=== PATIENT | female | born 1985 | race Caucasian/White ===

== ENCOUNTER 2021-05-19 07:51 | Emergency (ER) | payer BC ==
[2021-05-19 07:59] VITALS: RESP 18; TEMP 98
--- NOTE | 2021-05-19 08:19 | ED ---
General Adult HPI - General Chief complaint: Abdominal Pain Stated complaint: unable to have a BM Time Seen by Provider: 05/19/21 08:00 Source: patient, RN notes reviewed, old records reviewed Mode of arrival: ambulatory Limitations: no limitations - History of Present Illness Initial comments: This is a 35-year-old female presents emergency Department complaining of constipation for 3 weeks. Patient states she's only been able to go a little bit over the last 3 weeks and she's taken MiraLAX and mag citrate and an enema and has not had any success. Patient states that she also has a history of endometriosis and saw her ACCOUNTS RECEIVABLE BOOKKEEPER in he wants to get an ultrasound on her and the next week. Patient states she does have diffuse abdominal pain but occasionally does have some sharp pains in the lower abdomen. Patient denies any dysuria hematuria urinary frequency. Patient denies any nausea vomiting diarrhea. Patient denies any vaginal bleeding or discharge. - Related Data Previous Rx's Medication Instructions Recorded bisacodyL [Dulcolax] 10 mg PO DAILY #10 tab 05/19/21 Allergies Allergy/AdvReac Type Severity Reaction Status Date / Time No Known Allergies Allergy Verified 05/19/21 07:55 Review of Systems ROS Statement: Those systems with pertinent positive or pertinent negative responses have been documented in the HPI. ROS Other: All systems not noted in ROS Statement are negative. Past Medical History Past Medical History: No Reported History History of Any Multi-Drug Resistant Organisms: None Reported Past Surgical History: Breast Surgery, Tubal Ligation, Uterine Ablation Additional Past Surgical History / Comment(s): R lumpecoty, L ovarian cyst removal Past Psychological History: Anxiety Smoking Status: Never smoker Past Alcohol Use History: Occasional Past Drug Use History: Marijuana General Exam - General Exam Comments Initial Comments: GENERAL: Patient is well-developed and well-nourished. Patient is nontoxic and well- hydrated and is in mild distress. ENT: Neck is soft and supple. No significant lymphadenopathy is noted. Oropharynx is clear. Moist mucous membranes. Neck has full range of motion without eliciting any pain. EYES: The sclera were anicteric and conjunctiva were pink and moist. Extraocular movements were intact and pupils were equal round and reactive to light. Eyelids were unremarkable. ABDOMEN: No point tenderness but diffuse mild tenderness SKIN: Skin is clear with no lesions or rashes and otherwise unremarkable. NEUROLOGIC: Patient is alert and oriented x3. Cranial nerves II through XII are grossly intact. Motor and sensory are also intact. Normal speech, volume and content. Symmetrical smile. MUSCULOSKELETAL: Normal extremities with adequate strength and full range of motion. LYMPHATICS: No significant lymphadenopathy is noted PSYCHIATRIC: Normal psychiatric evaluation. Limitations: no limitations Course Vital Signs 05/19/21 07:55 Temperature 98 F Pulse Rate 91 Respiratory 18 Rate Blood Pressure 125/71 O2 Sat by Pulse 98 Oximetry Medical Decision Making - Medical Decision Making Patient received an enema in the emergency department with minimal results. Patient's constipation did not cause any dilatation of the colon she will go home and try milk of magnesia and Dulcolax. Patient will then follow-up with her primary medical care doctor. Disposition Clinical Impression: Constipation Disposition: HOME SELF-CARE Condition: Good Instructions (If sedation given, give patient instructions): Constipation (ED), High Fiber Diet (ED) Prescriptions: bisacodyL [Dulcolax] 10 mg PO DAILY #10 tab Is patient prescribed a controlled substance at d/c from ED?: No Referrals: Sim Kaiser MD [Primary Care Provider] - 1-2 days Time of Disposition: 10:56
--- NOTE | 2021-05-19 08:26 | XR ---
EXAMINATION TYPE: XR KUB DATE OF EXAM: 05/19/2021 COMPARISON: NONE HISTORY: Pain TECHNIQUE: One view abdominal series FINDINGS: The osseous structures are intact. The bowel gas pattern is nonspecific. No evidence of obstruction. Lung bases are clear. Retained fecal debris throughout the colon. Tiny calcification along the late ral margin of the right acetabulum could be associated with acetabular labral tear correlate clinical ly. IMPRESSION: 1. Nonspecific abdomen. Correlate for constipation.
[2021-05-19 11:20] VITALS: BP 119/68; PULSE 69
== END 2021-05-19 11:20 | disposition home or self-care (01) ==
LOC: EC 07:51
DX: K59.00 Constipation, unspecified (principal); R10.84 Generalized abdominal pain
CPT/HCPCS: 74018; 99284

== ENCOUNTER → 2022-05-16 | Outpatient (CLI) | payer BC ==
[2022-05-16 22:50] LABS: Basophils # (A) 0.03 X 10*3/uL (0.00-0.10); Basophils % (A) 0.5 %; Eosinophils # (A) 0.07 X 10*3/uL (0.04-0.35); Eosinophils % (A) 1.2 %; HCT 38.7 % (37.2-46.3); HGB 13.2 g/dL (12.0-15.0); Immature Grans, Automated 0.2 %; Lymphocytes # (A) 2.78 X 10*3/uL (0.90-5.00); MCH 31.9 pg (27.0-32.0); MCHC 34.1 g/dL (32.0-37.0); MCV 93.5 fL (80.0-97.0); Mean Platelet Volume 11.2 fL (9.5-12.2); Monocytes % (A) 8.4 %; NRBC Per 100 WBC 0 /100 WBCS (0.0-0.0); Neutrophils # (A) 2.53 X 10*3/uL (1.80-7.70); Neutrophils % (A) 42.7 %; Platelet Count 305 X 10*3/uL (140-440); RBC 4.14 X 10*6/uL (4.10-5.20); RDW 12.9 % (11.5-14.5); WBC 5.92 X 10*3/uL (4.50-10.00)
== END | disposition home or self-care (01) ==
LOC: LABPAT 15:16
PROVIDERS: ATTEND Obstetrics & Gynecology
DX: Z01.812 Encounter for preprocedural laboratory examination (principal); N85.7 Hematometra; N93.8 Other specified abnormal uterine and vaginal bleeding
CPT/HCPCS: 36415; 85025

== ENCOUNTER 2022-05-21 06:04 | Day surgery (SDC) | payer BC ==
[2022-05-16 13:48] VITALS: BMI 25.1
[~2022-05-21 06:04] MED LIST: Pre Op ABX Message 1 EACH MISC MISCELLANE ONE
[2022-05-21] MEDS ORDERED: LACTATED RINGERS 1,000 ML IV SCH (06:47)
[2022-05-21] MEDS ORDERED: DEXAMETHASONE SOD PHOSPHATE 4 MG/ML 1 ML VIAL IV ONE (06:47)
[2022-05-21] MEDS ORDERED: SCOPOLAMINE 1 MG/72 HR PATCH TRANSDERM ONE (06:47)
[2022-05-21] MEDS ORDERED: ONDANSETRON 4 MG/2 ML VIAL IVP ONE (06:47)
[2022-05-21] MEDS ORDERED: MIDAZOLAM 2 MG/2 ML VIAL IV PRN (06:47)
[2022-05-21] MEDS ORDERED: HYDROmorphone 0.5 MG/0.5 ML SYRINGE IVP PRN (07:00)
[2022-05-21] MEDS: LIDOCAINE 1%-EPI 1:100,000 20 ML VIAL SQ ONE ×2 (07:08→07:23)
[2022-05-21] MEDS ORDERED: LIDOCAINE 2% INJ 20 MG/ML (2 ML VIAL) ONE (07:19)
[2022-05-21] MEDS ORDERED: PROPOFOL 10 MG/ML 20 ML VIAL IV ONE (07:19)
[2022-05-21] MEDS ORDERED: fentaNYL (PF) 50 MCG/ML 2 ML AMP ONE (07:19)
[2022-05-21] MEDS ORDERED: KETOROLAC 15 MG/ML 1 ML VIAL ONE (07:19)
[2022-05-21] MEDS ORDERED: fentaNYL (PF) 50 MCG/1 ML VIAL IVP ONE (07:20)
[2022-05-21 07:25] VITALS: RESP 16
[2022-05-21] MEDS ORDERED: LIDOCAINE 1%-EPI 1:100,000 20 ML VIAL SUBMUCOSAL ONE (07:50)
--- NOTE | 2022-05-21 08:04 | P.OP ---
Date of Procedure: 05/21/22 Preoperative Diagnosis: Dysmenorrhea, dysfunctional uterine bleeding, probable hematoma endometrial Postoperative Diagnosis: Same Procedure(s) Performed: Diagnostic hysteroscopy and dilation and curettage Anesthesia: MAC Surgeon: Estella Garcia Estimated Blood Loss (ml): 5 IV fluids (ml): 600 Urine output (ml): 50 Pathology: other (Endometrial curettings) Condition: stable Disposition: PACU Indications for Procedure: Dysfunctional uterine bleeding, dysmenorrhea and findings of possible hematoma endometrioma on pelvic ultrasound. History of bilateral tubal ligation and endometrial ablation in the past. Operative Findings: Multiparous cervix with second to third degree cervical uterine prolapse. Cervix is initially stenotic however does dilate to a depth of approximately 7 cm. 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 No distinct hematometra pocket located. Bilateral tubal ostia not visualized. Description of Procedure: After the patient was met in the preoperative holding area and all questions were answered, she was taken to the operating room where anesthetic was administered without incident. Appropriate timeout procedure was undertaken. The patient was positioned, prepped and draped in the dorsal lithotomy position. Bladder drained for approximately 50 mL of clear urine. Exam under anesthetic revealed a globular uterus, approximately 6 weeks' size and freely mobile. Weighted speculum was placed in the vagina and the cervix was grasped anteriorly with a single-tooth tenaculum. The cervix was multiparous and did descend to the level of the introitus. Paracervical block was placed. Very gentle probing of the cervical external os reveals initial mild stenosis. This is gently dilated to a depth of approximately 2 cm. At this point the diagnostic hysteroscope is introduced and with positive fluid pressure under direct visualization the hysteroscope is advanced. The scope was advanced very gently to a depth of 6-7 cm. There is no hematometra pocket encountered and no normal endometrial cavity appreciated. 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 The hysteroscope was removed and this passage was gently dilated to allow for passage of the smallest sharp banjo curet. Prior to placement of this curette the hysteroscope was reintroduced to assure the same passageway had been followed and reassess anatomy. Again no normal endometrial cavity was visualized. This cavity was circumferentially gently curettaged with minimal tissue obtained. Instruments were then removed from the uterus and the cervix was observed. There is mild bleeding from the paracervical block sites which did resolve. No active bleeding from the cervix. Instruments were then removed from the vagina. All counts reported to me as correct. The patient was awoken and transported to recovery in good condition.
[2022-05-21 08:21] VITALS: TEMP 97.2
[2022-05-21 09:07] VITALS: PULSE 72
[2022-05-21 09:10] VITALS: BP 112/64
== END 2022-05-21 09:19 | disposition home or self-care (01) ==
LOC: OR 06:04
PROVIDERS: ATTEND Obstetrics & Gynecology
DX: N94.6 Dysmenorrhea, unspecified (principal); N93.8 Other specified abnormal uterine and vaginal bleeding; F41.8 Other specified anxiety disorders; F90.9 Attention-deficit hyperactivity disorder, unspecified type; F15.90 Other stimulant use, unspecified, uncomplicated; Z79.899 Other long term (current) drug therapy; Z98.890 Other specified postprocedural states; Z98.82 Breast implant status; Z98.51 Tubal ligation status
CPT/HCPCS: 58558; 81025; 88305; J2250; J1100; J2405; J3010 ×2; J1885; J2704; J1170; J2001

== ENCOUNTER 2023-02-23 12:35 | Emergency (ER) | payer BC ==
[2023-02-23] MEDS ORDERED: SODIUM CHLORIDE 0.9% 1,000 ML IV STA (13:49)
[2023-02-23] MEDS ORDERED: ONDANSETRON 4 MG/2 ML VIAL IVP STA (13:49)
[2023-02-23] MEDS ORDERED: SODIUM CHLORIDE 0.9% 500 ML 500 ML IV STA (13:49)
[2023-02-23] MEDS ORDERED: HYDROmorphone 0.5 MG/0.5 ML SYRINGE IVP STA ×2 (13:49→16:17)
[2023-02-23 14:10] LABS: Basophils % (A) 0 %; Eosinophils # (A) 0.1 k/uL (0-0.7); Eosinophils % (A) 2 %; HCT 40.9 % (34.0-46.0); HGB 14.5 gm/dL (11.4-16.0); Lymphocytes # (A) 2.1 k/uL (1.0-4.8); Lymphocytes % (A) 42 %; MCH 32.8 pg (25.0-35.0); MCHC 35.5 g/dL (31.0-37.0); MCV 92.4 fL (80.0-100.0); Mean Platelet Volume 8.1; Monocytes # (A) 0.4 k/uL (0-1.0); Monocytes % (A) 8 %; Neutrophils # (A) 2.3 k/uL (1.3-7.7); Neutrophils % (A) 46 %; Platelet Count 291 k/uL (150-450); RBC 4.42 m/uL (3.80-5.40); RDW 12.6 % (11.5-15.5); WBC 5.1 k/uL (3.8-10.6)
[2023-02-23 14:17] LABS: ALT 16 U/L (4-34); AST 21 U/L (14-36); African American GFR (CKD) >90 (>60 ml/min/1.73 sqM); Albumin 4.5 g/dL (3.5-5.0); Alkaline Phosphatase 57 U/L (38-126); Anion Gap 10 mmol/L; Appearance,Urine Clear (Clear); Bilirubin,Urine Negative (Negative); Blood Urea Nitrogen 6 mg/dL (7-17); Blood,Urine Negative (Negative); Calcium 9.2 mg/dL (8.4-10.2); Carbon Dioxide 24 mmol/L (22-30); Chloride 104 mmol/L (98-107); Color,Urine Light Yellow; Glucose 112 mg/dL (74-99); Glucose,Urine (UA) Negative (Negative); Ketones,Urine Negative (Negative); Leukocyte Esterase,Urine Negative (Negative); Lipase 141 U/L (23-300); Nitrite,Urine Negative (Negative); Non-African American GFR(CKD) >90 (>60 ml/min/1.73 sqM); Protein,Urine Negative (Negative); Sodium 138 mmol/L (137-145); Specific Gravity,Urine 1.009 (1.001-1.035); Total Bilirubin 0.5 mg/dL (0.2-1.3); Total Protein 7.6 g/dL (6.3-8.2); Urobilinogen,Urine <2.0 mg/dL (<2.0)
--- NOTE | 2023-02-23 15:16 | ED ---
Abdominal Pain HPI - General Chief Complaint: Abdominal Pain Stated Complaint: Lower abd pain Time Seen by Provider: 02/23/23 13:34 Source: patient, RN notes reviewed Mode of arrival: ambulatory Limitations: no limitations - History of Present Illness Initial Comments: This a 37-year-old female presents emergency Department chief complaint of lower abdominal pain. Patient states this started earlier today. States it's very intense sharp pain in her lower abdomen states that she's been having issues with bleeding, cyst possible endometriosis. Patient had D&C, abrasion, multiple medications to control her symptoms. Patient states she is scheduled for hysterectomy by Dr. Baez - Related Data Home Medications Medication Instructions Recorded Confirmed Citalopram Hydrobromide [CeleXA] 40 mg PO HS 05/19/21 09/18/22 Spironolactone 100 mg PO HS 05/19/21 09/18/22 Benzonatate [Tessalon Perles] 100 mg PO QID PRN 09/18/22 09/18/22 Dextroamphetamine/Amphetamine 7.5 mg PO DAILY 09/18/22 09/18/22 [Adderall] Diclofenac Sodium [Voltaren] 75 mg PO BID-W/MEALS 09/18/22 09/18/22 Doxycycline Hyclate 100 mg PO BID 09/18/22 09/18/22 Montelukast Sodium [Singulair] 10 mg PO HS 09/18/22 09/18/22 Previous Rx's Medication Instructions Recorded Ibuprofen [Motrin] 800 mg PO Q8HR PRN #30 tab 09/18/22 Lidocaine 5% Patch [Lidoderm 5% 1 patch TOPICAL DAILY PRN #7 patch 09/18/22 Patch] HYDROcodone/APAP 7.5-325MG [[place] 1 tab PO Q6HR PRN 3 Days #12 tab 02/23/23 7.5-325] Allergies Allergy/AdvReac Type Severity Reaction Status Date / Time No Known Allergies Allergy Verified 02/23/23 12:43 Review of Systems ROS Statement: Those systems with pertinent positive or pertinent negative responses have been documented in the HPI. ROS Other: All systems not noted in ROS Statement are negative. Past Medical History Past Medical History: No Reported History Additional Past Medical History / Comment(s): Hematometra,abd cramping History of Any Multi-Drug Resistant Organisms: None Reported Past Surgical History: Breast Surgery, Tubal Ligation, Uterine Ablation Additional Past Surgical History / Comment(s): lump removed rt breast, L ovarian cyst removal Past Anesthesia/Blood Transfusion Reactions: No Reported Reaction Past Psychological History: Anxiety Smoking Status: Never smoker Past Alcohol Use History: Occasional Past Drug Use History: Marijuana - Past Family History Mother Family Medical History: No Reported History General Exam Limitations: no limitations General appearance: alert, in no apparent distress Head exam: Present: atraumatic, normocephalic, normal inspection Eye exam: Present: normal appearance, PERRL, EOMI. Absent: scleral icterus, conjunctival injection, periorbital swelling ENT exam: Present: normal exam, normal oropharynx, mucous membranes moist Neck exam: Present: normal inspection, full ROM. Absent: tenderness, meningismus, lymphadenopathy Respiratory exam: Present: normal lung sounds bilaterally. Absent: respiratory distress, wheezes, rales, rhonchi, stridor Cardiovascular Exam: Present: regular rate, normal rhythm, normal heart sounds. Absent: systolic murmur, diastolic murmur, rubs, gallop, clicks GI/Abdominal exam: Present: soft, tenderness, normal bowel sounds. Absent: distended, guarding, rebound, rigid Back exam: Absent: CVA tenderness (R), CVA tenderness (L) Course Vital Signs 02/23/23 12:41 Temperature 97.9 F Pulse Rate 78 Respiratory 18 Rate Blood Pressure 124/79 O2 Sat by Pulse 99 Oximetry Medical Decision Making - Medical Decision Making Was pt. sent in by a medical professional or institution (, [facility], OPERATIONS SCHEDULER, urgent care, hospital, or fpc...) When possible be specific @ -No Did you speak to anyone other than the patient for history (EMS, parent, family, police, friend...)? What history was obtained from this source @ -No Did you review nursing and triage notes (agree or disagree)? Why? @ -I reviewed and agree with nursing and triage notes Were old charts reviewed (outside hosp., previous admission, EMS record, old EKG, old radiological studies, urgent care reports/EKG's, fpc records)? Report findings @ -No old charts were reviewed Differential Diagnosis (chest pain, altered mental status, abdominal pain women, abdominal pain men, vaginal bleeding, weakness, fever, dyspnea, syncope, headache, dizziness, GI bleed, back pain, seizure, CVA, palpatations, mental health, musculoskeletal)? @ -nDifferential Abdominal Pain Women: Appendicitis, Cholecystitis, diverticulosis, ischemic bowel, pancreatitis, hepatitis, UTI, gastroenteritis, AAA, incarcerated hernia, bowel obstruction, constipation, inflammatory bowel, hepatitis, peptic ulcer disease, splenic infarction, perforated viscus, vulvitis, ovarian torsion, PID, kidney stone, placenta abruption, this is not meant to be an all-inclusive listable EKG interpreted by me (3pts min.). @ -None X-rays interpreted by me (1pt min.). @ -None done CT interpreted by me (1pt min.). @ -None done U/S interpreted by me (1pt. min.). @ -Ultrasound shows thickening of endometrium consistent with adenomyosis What testing was considered but not performed or refused? (CT, X-rays, U/S, labs)? Why? @ -None What meds were considered but not given or refused? Why? @ -None Did you discuss the management of the patient with other professionals (professionals i.e. , PA, OPERATIONS SCHEDULER, lab, RT, psych nurse, social service technician, grease refiner operator, teacher, youth officer, lining caser)? Give summary @ -No Was smoking cessation discussed for >3mins.? @ -No Was critical care preformed (if so, how long)? @ -No Were there social determinants of health that impacted care today? How? (Homelessness, low income, unemployed, alcoholism, drug addiction, transportation, low edu. Level, literacy, decrease access to med. care, penitentiary, rehab)? @ -No Was there de-escalation of care discussed even if they declined (Discuss DNR or withdrawal of care, Hospice)? DNR status @ -No What co-morbidities impacted this encounter? (DM, HTN, Smoking, COPD, CAD, Cancer, CVA, ARF, Chemo, Hep., AIDS, mental health diagnosis, sleep apnea, morbid obesity)? @ -None Was patient admitted / discharged? Hospital course, mention meds given and route, prescriptions, significant lab abnormalities, going to OR and other pertinent info. @ -Discharged patient's pain is improved patient will follow-up with her DELIVERY NURSE patient is scheduled for hysterectomy. Left wrist x-rays urinalysis unremarkable. Undiagnosed new problem with uncertain prognosis? @ -No Drug Therapy requiring intensive monitoring for toxicity (Heparin, Nitro, Insulin, Cardizem)? @ -No Were any procedures done? @ -No Diagnosis/symptom? @ -Pelvic pain, adenomyosis Acute, or Chronic, or Acute on Chronic? @ -Acute on chronic Uncomplicated (without systemic symptoms) or Complicated (systemic symptoms)? @ -[Uncomplicated] Side effects of treatment? @ -[No] Exacerbation, Progression, or Severe Exacerbation? @ -[No] Poses a threat to life or bodily function? How? (Chest pain, USA, ND, pneumonia, PE, COPD, DKA, ARF, appy, cholecystitis, CVA, Diverticulitis, Homicidal, Suicidal, threat to staff... and all critical care pts) @ -[No] - Lab Data Result diagrams: 02/23/23 13:54 02/23/23 13:54 Lab Results 02/23/23 02/23/23 02/23/23 Range/Units 13:54 13:54 13:54 WBC 5.1 (3.8-10.6) k/uL RBC 4.42 (3.80-5.40) m/uL Hgb 14.5 (11.4-16.0) gm/dL Hct 40.9 (34.0-46.0) % MCV 92.4 (80.0-100.0) fL MCH 32.8 (25.0-35.0) pg MCHC 35.5 (31.0-37.0) g/dL RDW 12.6 (11.5-15.5) % Plt Count 291 (150-450) k/uL MPV 8.1 Neutrophils % 46 % Lymphocytes % 42 % Monocytes % 8 % Eosinophils % 2 % Basophils % 0 % Neutrophils # 2.3 (1.3-7.7) k/uL Lymphocytes # 2.1 (1.0-4.8) k/uL Monocytes # 0.4 (0-1.0) k/uL Eosinophils # 0.1 (0-0.7) k/uL Basophils # 0.0 (0-0.2) k/uL Sodium 138 (137-145) mmol/L Potassium 4.0 (3.5-5.1) mmol/L Chloride 104 (98-107) mmol/L Carbon Dioxide 24 (22-30) mmol/L Anion Gap 10 mmol/L BUN 6 L (7-17) mg/dL Creatinine 0.74 (0.52-1.04) mg/dL Est GFR (CKD-EPI)AfAm >90 (>60 ml/min/1.73 sqM) Est GFR (CKD-EPI)NonAf >90 (>60 ml/min/1.73 sqM) Glucose 112 H (74-99) mg/dL Plasma Lactic Acid William (0.7-2.0) mmol/L Calcium 9.2 (8.4-10.2) mg/dL Total Bilirubin 0.5 (0.2-1.3) mg/dL AST 21 (14-36) U/L ALT 16 (4-34) U/L Alkaline Phosphatase 57 (38-126) U/L Total Protein 7.6 (6.3-8.2) g/dL Albumin 4.5 (3.5-5.0) g/dL Lipase 141 (23-300) U/L Urine Color Light Yellow Urine Appearance Clear (Clear) Urine pH 6.0 (5.0-8.0) Ur Specific [place] 1.009 (1.001-1.035) Urine Protein Negative (Negative) Urine Glucose (UA) Negative (Negative) Urine Ketones Negative (Negative) Urine Blood Negative (Negative) Urine Nitrite Negative (Negative) Urine Bilirubin Negative (Negative) Urine Urobilinogen <2.0 (<2.0) mg/dL Ur Leukocyte Esterase Negative (Negative) 02/23/23 Range/Units 13:54 WBC (3.8-10.6) k/uL RBC (3.80-5.40) m/uL Hgb (11.4-16.0) gm/dL Hct (34.0-46.0) % MCV (80.0-100.0) fL MCH (25.0-35.0) pg MCHC (31.0-37.0) g/dL RDW (11.5-15.5) % Plt Count (150-450) k/uL MPV Neutrophils % % Lymphocytes % % Monocytes % % Eosinophils % % Basophils % % Neutrophils # (1.3-7.7) k/uL Lymphocytes # (1.0-4.8) k/uL Monocytes # (0-1.0) k/uL Eosinophils # (0-0.7) k/uL Basophils # (0-0.2) k/uL Sodium (137-145) mmol/L Potassium (3.5-5.1) mmol/L Chloride (98-107) mmol/L Carbon Dioxide (22-30) mmol/L Anion Gap mmol/L BUN (7-17) mg/dL Creatinine (0.52-1.04) mg/dL Est GFR (CKD-EPI)AfAm (>60 ml/min/1.73 sqM) Est GFR (CKD-EPI)NonAf (>60 ml/min/1.73 sqM) Glucose (74-99) mg/dL Plasma Lactic Acid William 1.3 (0.7-2.0) mmol/L Calcium (8.4-10.2) mg/dL Total Bilirubin (0.2-1.3) mg/dL AST (14-36) U/L ALT (4-34) U/L Alkaline Phosphatase (38-126) U/L Total Protein (6.3-8.2) g/dL Albumin (3.5-5.0) g/dL Lipase (23-300) U/L Urine Color Urine Appearance (Clear) Urine pH (5.0-8.0) Ur Specific [place] (1.001-1.035) Urine Protein (Negative) Urine Glucose (UA) (Negative) Urine Ketones (Negative) Urine Blood (Negative) Urine Nitrite (Negative) Urine Bilirubin (Negative) Urine Urobilinogen (<2.0) mg/dL Ur Leukocyte Esterase (Negative) Disposition Clinical Impression: Pelvic pain, Adenomyosis Disposition: HOME SELF-CARE Condition: Stable Instructions (If sedation given, give patient instructions): Endometriosis (ED) Additional Instructions: Please return to the Emergency Department if symptoms worsen or any other concerns. Prescriptions: HYDROcodone/APAP 7.5-325MG [[place] 7.5-325] 1 tab PO Q6HR PRN 3 Days #12 tab PRN Reason: Pain Is patient prescribed a controlled substance at d/c from ED?: Yes Referrals: Sim Kaiser MD [Primary Care Provider] - 1-2 days Time of Disposition: 16:18
--- NOTE | 2023-02-23 16:07 | US ---
EXAMINATION TYPE: US transvaginal DATE OF EXAM: 02/23/2023 COMPARISON: NONE CLINICAL INDICATION: Female, 37 years old with history of pain; Pain, intermittent bleeding x 3 weeks . Hx tubal ligation, uterine ablation, left ovarian cyst removal, d and c. Patient states she has a h ysterectomy scheduled for 03/11/23. Hx 2 miscarriages. . TECHNIQUE: Transvaginal (TV). Date of LMP: Unknown per patient. EXAM MEASUREMENTS: Uterus: 10.6 x 6.2 x 4.7 cm Endometrial Stripe: 0.41 cm Right Ovary: Not seen Left Ovary: 3.1 x 2.1 x 1.9 cm 1. Uterus: Slightly enlarged versus measures upper limits. Anteverted heterogeneous appearance of th e myometrium, suggesting underlying adenomyosis. 2. Endometrium: Within normal limits measuring 4 mm.Trace volume of complex fluid is noted within t he upper myometrium measuring up to 7 mm, likely on expelled blood products. Punctate calculus within the endometrium measuring up to 5 mm. 3. Right Ovary: Not seen. 4. Left Ovary: Within normal limits. Small dominant ovarian follicle noted measuring up to millimete rs. Spectral, color and waveform doppler imaging shows arterial and venous flow within the left ovary. Right ovary was not seen. 5. Bilateral Adnexa: Appear wnl 6. Posterior cul-de-sac: Appears wnl IMPRESSION: 1. Heterogeneous appearance of the myometrium suggesting underlying adenomyosis. 2. Punctate calculus and small volume of fluid within the endometrium, likely related to chronic spel led blood products. 3. Nonvisualization of the right ovary.
[2023-02-23] MEDS ORDERED: KETOROLAC 15 MG/ML 1 ML VIAL IVP STA (16:17)
[2023-02-23 16:30] VITALS: BP 120/76; PULSE 80; RESP 16; TEMP 98.2
== END 2023-02-23 16:56 | disposition home or self-care (01) ==
LOC: EC 12:35
DX: N80.03 Adenomyosis of the uterus (principal); F12.90 Cannabis use, unspecified, uncomplicated; F41.9 Anxiety disorder, unspecified; Z79.899 Other long term (current) drug therapy
CPT/HCPCS: 36415; 80053; 83605; 83690; 85025; 81003; 93975; 76830; 99284; 96374; 96375 ×2; 96376; 96361; J2405; J1885; J1170

== ENCOUNTER → 2023-03-01 | Outpatient (CLI) | payer BC ==
[2023-03-01 10:42] LABS: Basophils % (A) 0 %; Eosinophils # (A) 0.1 k/uL (0-0.7); Eosinophils % (A) 1 %; HCT 40.2 % (34.0-46.0); HGB 13.7 gm/dL (11.4-16.0); Lymphocytes # (A) 2.3 k/uL (1.0-4.8); Lymphocytes % (A) 40 %; MCH 32.3 pg (25.0-35.0); MCV 94.9 fL (80.0-100.0); Mean Platelet Volume 8.1; Monocytes # (A) 0.3 k/uL (0-1.0); Monocytes % (A) 6 %; Neutrophils % (A) 51 %; Platelet Count 268 k/uL (150-450); RBC 4.24 m/uL (3.80-5.40); RDW 12.7 % (11.5-15.5); WBC 5.8 k/uL (3.8-10.6)
[2023-03-01 10:52] LABS: African American GFR (CKD) >90 (>60 ml/min/1.73 sqM); Anion Gap 7 mmol/L; Blood Urea Nitrogen 8 mg/dL (7-17); Carbon Dioxide 28 mmol/L (22-30); Chloride 105 mmol/L (98-107); Glucose 93 mg/dL (74-99); Non-African American GFR(CKD) >90 (>60 ml/min/1.73 sqM); Potassium 4.1 mmol/L (3.5-5.1); Sodium 140 mmol/L (137-145)
== END ==
LOC: PAT 09:55
PROVIDERS: ATTEND Obstetrics & Gynecology Obstetrics
DX: Z01.818 Encounter for other preprocedural examination (principal); N85.7 Hematometra; R10.2 Pelvic and perineal pain
CPT/HCPCS: 80051; 82565; 82947; 84520; 85025; 87086

== ENCOUNTER 2023-03-11 06:57 | Day surgery (SDC) | payer BC ==
[2023-03-06 15:55] VITALS: BMI 25.1
[2023-03-11] MEDS ORDERED: DEXAMETHASONE SOD PHOSPHATE 4 MG/ML 1 ML VIAL IV ONE (07:10)
[2023-03-11] MEDS ORDERED: ONDANSETRON 4 MG/2 ML VIAL IVP ONE (07:10)
[2023-03-11] MEDS: LACTATED RINGERS 1,000 ML IV SCH ×2 (07:51→20:23)
[2023-03-11] MEDS ORDERED: fentaNYL (PF) 50 MCG/ML 2 ML AMP IVP ONE ×2 (08:01→08:24)
[2023-03-11] MEDS ORDERED: MIDAZOLAM 2 MG/2 ML VIAL IVP ONE (08:24)
--- NOTE | 2023-03-11 08:55 | P.ANPRN ---
Procedure Note - Anesthesia - Epidural/Spinal Spinal Time Out Performed: Yes Date of Procedure: 03/11/23 Procedure Start Time: Procedure Stop Time: Location of Patient: PreOp Indication: Acute Post-Operative Pain, Requested by Surgeon Sedation Type: Sedate with meaningful contact maintained Preparation: Sterile Prep Position: Sitting Catheter: None Needle Guage: 25 Blood Aspirated: No Pain Paresthesia on Injection Noted: No Events: Uneventful and Well Tolerated (300 mcg of duramorph ,and 25 mcg fentanyle injected intrathecally)
[2023-03-11] MEDS ORDERED: HYDROmorphone 0.5 MG/0.5 ML SYRINGE IVP PRN (08:56)
[2023-03-11] MEDS ORDERED: KETOROLAC 15 MG/ML 1 ML VIAL IVP PRN (08:56)
[2023-03-11] MEDS ORDERED: NALOXONE 0.4 MG/ML 1 ML VIAL IV PRN (08:56)
[2023-03-11] MEDS ORDERED: GLYCOPYRROLATE 0.2 MG/ML 2 ML VIAL ONE (09:18)
[2023-03-11] MEDS ORDERED: fentaNYL (PF) 50 MCG/ML 2 ML AMP ONE (09:18)
[2023-03-11] MEDS ORDERED: ROCURONIUM 10 MG/ML (5 ML VIAL) IV ONE (09:18)
[2023-03-11] MEDS ORDERED: NEOSTIGMINE 1 MG/ML 10 ML VIAL ONE (09:18)
[2023-03-11] MEDS ORDERED: PROPOFOL 10 MG/ML 20 ML VIAL IV ONE (09:18)
[2023-03-11] MEDS ORDERED: MIDAZOLAM 2 MG/2 ML VIAL ONE (09:18)
[2023-03-11] MEDS ORDERED: LIDOCAINE 2% INJ 20 MG/ML (2 ML VIAL) ONE (09:18)
[2023-03-11] MEDS ORDERED: MORPHINE SULFATE (PF) 0.3 MG/0.3 ML SYR ONE (09:18)
[2023-03-11] MEDS ORDERED: PHENYLEPHRINE-0.9% NACL SYG 1,000 MCG/10 ML SYRINGE ONE (09:18)
[2023-03-11] MEDS ORDERED: LACTATED RINGERS 1,000 ML IV ONE (09:56)
[2023-03-11] MEDS ORDERED: BUPIVACAINE (PF) 0.25% 30 ML VIAL SQ ONE ×2 (10:12→10:50)
--- NOTE | 2023-03-11 10:52 | P.HPOB ---
History of Present Illness H&P Date: 03/11/23 Chief Complaint: Pelvic pain, menometrorrhagia This is a 37-year-old 0-2 that presents for robotic assist vaginal hysterectomy possible bilateral salpingectomy as she believes they "took her tubes" when she had her tubal ligation in the past possible oophorectomy, christiano gnostic cystoscopy. Patient had a significant history of pelvic pain s/p EA. On US evaluation noted hematometra. Patient was taken back for hysteroscopy D&C which was unable to be completed secondary to severe scarring/ashermans syndrome. Patient continues to have significant pain and wishes definitive treatment with hysterectomy and ovarian conservation. Review of Systems Constitutional: Denies chills, Denies fatigue, Denies fever Ears, nose, mouth and throat: Denies headache Cardiovascular: Denies leg edema Respiratory: Denies dyspnea Gastrointestinal: Denies nausea, Denies vomiting Genitourinary: Reports as per HPI, Denies Past Medical History Past Medical History: No Reported History Additional Past Medical History / Comment(s): Hematometra,abd cramping History of Any Multi-Drug Resistant Organisms: None Reported Past Surgical History: Breast Surgery, Tubal Ligation, Uterine Ablation Additional Past Surgical History / Comment(s): Right breast lumpectomy, left ovarian cyst removed. Past Anesthesia/Blood Transfusion Reactions: No Reported Reaction Past Psychological History: Anxiety Smoking Status: Never smoker Past Alcohol Use History: Occasional Past Drug Use History: Marijuana Additional Drug Use History / Comment(s): Marijuana use daily. Aware no use 24 hrs prior to procedure. - Past Family History Mother Family Medical History: No Reported History Father Family Medical History: Cancer Medications and Allergies Home Medications Medication Instructions Recorded Confirmed Type Citalopram Hydrobromide [CeleXA] 40 mg PO HS 05/19/21 03/06/23 History Spironolactone 100 mg PO HS 05/19/21 03/06/23 History Allergies Allergy/AdvReac Type Severity Reaction Status Date / Time No Known Allergies Allergy Verified 03/11/23 07:24 Exam Osteopathic Statement: *. No significant issues noted on an osteopathic structural exam other than those noted in the History and Physical/Consult. Vital Signs Temp Pulse Resp BP Pulse Ox 03/11/23 09:05 65 16 101/59 100 03/11/23 08:29 67 16 106/59 98 08/28/23 07:34 97.4 F L 69 16 113/58 100 Intake and Output 03/10/23 03/11/23 03/11/23 22:59 06:59 14:59 Other: Weight 78.3 kg Targeted physical exam is performed in this date in general this is a well- nourished well-developed female in no acute distress, breathing is noted to be nonlabored, heart has a regular rate and rhythm, abdomen is soft and nontender, genitourinary exam is normal in nature, external genitalia is noted to be normal for age, vaginal mucus is noted be pink and well rugated, cervix is without mass or lesion, uterus is mobile no adnexal masses are appreciated. Assessment and Plan (1) Hematometra Narrative/Plan: Failed endometrial ablation Current Visit: Yes Status: Acute Code(s): N85.7 - HEMATOMETRA SNOMED Code(s): 29691449 (2) Adenomyosis Current Visit: No Status: Acute Code(s): N80.03 - ADENOMYOSIS OF THE UTERUS SNOMED Code(s): 800132064 (3) Pelvic pain Current Visit: No Status: Acute Code(s): R10.2 - PELVIC AND PERINEAL PAIN SNOMED Code(s): 93610872 Plan: 37-year-old female presents presents for robotic-assisted vaginal hysterectomy, diagnostic cystoscopy. Patient has a history of a bilateral tubal ligation for which she says her tubes are gone. Any remaining tubal tissue will be removed at the time of surgery. Plan is for ovarian conservation given age. Surgery is reviewed in detail and questions are answered. Risks benefits and alternatives were discussed in the office. Risks are reviewed including but not limited to infection, bleeding, damage to bladder, bowel, ureteric injury. Patient states understanding and wishes to proceed.
[2023-03-11] MEDS ORDERED: ACETAMINOPHEN IV (For NPO) 1,000 MG in EMPTY BAG 1 BAG IVPB ONE (11:04)
[2023-03-11] MEDS ORDERED: SIMETHICONE 80 MG CHEWABLE PO PRN (11:04)
[2023-03-11] MEDS ORDERED: Acetaminophen-Codeine 300-30mg TAB PO PRN ×2 (11:04)
[2023-03-11] MEDS ORDERED: IBUPROFEN IV 800 MG in SODIUM CHLORIDE 0.9% 250 ML IV ONE (11:06)
[2023-03-11] MEDS: HYDROmorphone 0.5 MG/0.5 ML SYRINGE IVP PRN ×2 (11:12→11:35)
--- NOTE | 2023-03-11 11:12 | P.OP ---
Date of Procedure: 03/11/23 Preoperative Diagnosis: Pelvic pain and hematometra Postoperative Diagnosis: Same plus adenomyosis Procedure(s) Performed: Robotic cyst vaginal hysterectomy, diagnostic cystoscopy Anesthesia: MIRYAM Surgeon: Patience Baez Cobbler Mckay #1: Estella Garcia Estimated Blood Loss (ml): 15 IV fluids (ml): 600 Urine output (ml): 500 Pathology: other (Uterus cervix) Condition: stable Disposition: PACU Indications for Procedure: 37-year-old 0-2 status post endometrial ablation that presented with complaints of cyclic pelvic pain. On ultrasound evaluation hematocrit nature was diagnosed. Patient was taken back for hysteroscopy dilation and curettage where Asherman syndrome was noted and inability to enter the cavity secondary to scarring was appreciated. Patient desired definitive treatment with hy sterectomy and she is done with childbearing. Operative Findings: Globular uterus is appreciated, bilateral follicular ovaries are noted grossly normal Description of Procedure: Patient was taken back to the operating suite where general anesthesia was obtained without difficulty by the anesthesia department. Patient was prepped and draped in normal sterile fashion in the dorsal lithotomy position. A Ruiz catheter was placed under sterile technique. Weighted inspected is placed in the posterior vaginal vault the anterior lip of the cervix was visualized and grasped with a single-tooth tenaculum. Endocervical canal was then serially dilated and V care uterine manipulator was placed. Cervical cap was placed snugly against the cervix and the balloon was filled with air. All lymph nodes were removed from the patient's vaginal vault attention was turned the patient's abdomen where approximately 2 finger breaths above the umbilicus a small skin incision is made. Through this incision the Veress needles placed. Once the Veress needle was deemed to be in the proper position with a drop of CO2 pressure with insufflation of CO2 gas CO2 insufflation was allowed to occur. 3 L of gas were used to obtain pneumoperitoneum. At this time an 8 mm trocar and sleeve is placed through the skin incision and toward the pneumoperitoneum. The above-noted findings were visualized. The additional port sites are now placed under direct visualization. The lateral ports are noted to be 10 cm lateral and 3 cm inferior to the midline port these are operative ports and the da Seferino machine and placed under direct visualization. In the left upper quadrant a 12 mm trocar and sleeve is placed under direct visualization. At this time the da Seferino robot was docked in the usual fashion. In the right operative arm the monopolar scissors is placed, and the left operative arm the bipolar forceps is placed. Attention was then turned the patient's left adnexa the fallopian tube was noted to be absent but a thin filmy adhesion of the bowel was appreciated this was taken off sharply hemostasis was appreciated. The uterine ovarian ligament was then visualized coagulated distally and proximally divided. This continued through the broad and toward the round which was coagulated and transected. Hemostasis was noted. The bladder flap was then created using sharp and blunt dissection. The bladder was then dissected away from the operating field. A syringe the uterine artery was visualized coagulated and transected. Hemostasis was noted. Attention was then turned the patient's right uterine ovarian ligament which was coagulated distally and proximal plane divided. This continued through the broad and toward the round which was coagulated and transected. The bladder flap from the right was then created using sharp and blunt dissection. At this time the ascending branch the uterine artery was visualized coagulated and transected. Hemostasis was noted. The bladder was then dissected further from the operating field. At this time the only remaining attachment was a vaginal attachment therefore colpotomy incision was made with the circumflex potential fashion and the uterus was delivered through the vaginal opening. The vaginal cuff was then copiously irrigated. Any points of bleeding were made hemostatic with the Bovie. The vaginal cuff was closed with multiple [id number] sutures of 0 Vicryl. Excellent 5 sutures were used to obtain hemostasis. The pelvis was then copiously irrigated hemostasis was noted. A small amount of bleeding was noted on the patient's right lateral vaginal cuff therefore Surgicel powder was placed along the vaginal cuff. Hemostasis was then noted. All instrument removed from the patient's abdomen. Attention was turned the patient's vaginal vault the Ruiz catheter was removed and noted be spilling clear yellow urine into the Ruiz catheter tubing. The cystoscope was then performed. The cystoscope was placed through the urethra and toward the bladder bladder bubble was appreciated to complete survey revealed no injury to the bladder mucosa. Both ureteral or ifices were noted be spilling clear yellow urine. The cystoscope was removed and the Ruiz catheter was replaced. The vaginal vault was cleared of any blood that was left over from the surgery. Hemostasis was noted. Attention was then turned the patient's abdomen where the skin incisions were closed with 4-0 Vicryl in a subarticular fashion. Steri-Strips and sterile dressings were applied. All counts were noted be correct 2 at the end of the procedure. Patient tolerated procedure well was taken the recovery room awake in stable condition.
[2023-03-11] MEDS ORDERED: droPERidol 5 MG/2 ML VIAL IVP ONE (11:35)
[2023-03-11] MEDS ORDERED: diphenhydrAMINE 50 MG/ML 1 ML VIAL IVP PRN (17:25)
[2023-03-11] MEDS ORDERED: ACETAMINOPHEN TAB 325 MG TAB PO PRN (19:53)
[2023-03-11] MEDS: SENNOSIDES-DOCUSATE SODIUM 1 EACH TAB PO SCH (20:22)
[2023-03-12] MEDS: IBUPROFEN 600 MG TAB PO PRN ×2 (00:11→06:12)
[2023-03-12 03:59] VITALS: RESP 16
[2023-03-12 06:26] LABS: Basophils % (A) 0 %; Eosinophils # (A) 0.1 k/uL (0-0.7); Eosinophils % (A) 1 %; HCT 33.8 % (34.0-46.0); HGB 11.4 gm/dL (11.4-16.0); Lymphocytes # (A) 1.8 k/uL (1.0-4.8); Lymphocytes % (A) 20 %; MCH 32.1 pg (25.0-35.0); MCHC 33.8 g/dL (31.0-37.0); MCV 95.2 fL (80.0-100.0); Mean Platelet Volume 8.3; Monocytes # (A) 0.5 k/uL (0-1.0); Monocytes % (A) 5 %; Neutrophils # (A) 6.5 k/uL (1.3-7.7); Neutrophils % (A) 73 %; Platelet Count 234 k/uL (150-450); RBC 3.55 m/uL (3.80-5.40); RDW 12.7 % (11.5-15.5); WBC 8.9 k/uL (3.8-10.6)
[2023-03-12] MEDS: SENNOSIDES-DOCUSATE SODIUM 1 EACH TAB PO SCH (07:56)
[2023-03-12 08:27] VITALS: BP 105/68; PULSE 66; TEMP 98
--- NOTE | 2023-03-12 08:44 | P.DS ---
Providers Date of admission: 03/11/2023 Expected date of discharge: 03/12/23 Attending physician: Patience Baez Primary care physician: Sim Kaiser MD - Discharge Diagnosis(es) (1) Hematometra Current Visit: Yes Status: Acute (2) Adenomyosis Current Visit: No Status: Acute (3) Pelvic pain Current Visit: No Status: Acute (4) S/P laparoscopic hysterectomy Current Visit: Yes Status: Acute Hospital Course: 37-year-old female that presented for robotic assist vaginal hysterectomy with diagnostic cystoscopy yesterday. Patient had a prior history of an endometrial ablation and continued to struggle with cyclic pelvic pain, on ultrasound and endometrial was noted. Patient elected definitive treatment with hysterectomy. For full details on this patient please see the dictated history and physical. Patient underwent robotic-assisted vaginal hysterectomy, diagnostic cystoscopy without issue. For full details on the procedure please the operative report. Patient's postoperative course has been uneventful. On this postoperative day #1 she is a bleeding and voiding without difficulty. She is tolerating regular diet without nausea or vomiting. she notes positive flatus. She states her pain is well-controlled. She would like discharge home. Patient Condition at Discharge: Good Plan - Discharge Summary Discharge Rx Participant: Yes New Discharge Prescriptions: No Action Citalopram Hydrobromide [CeleXA] 40 mg PO HS Spironolactone 100 mg PO HS Discharge Medication List Citalopram Hydrobromide [CeleXA] 40 mg PO HS 05/19/21 [History] Spironolactone 100 mg PO HS 05/19/21 [History] Follow up Appointment(s)/Referral(s): Patience Baez DO [Doctor of Osteopathic Medicine] - 2 Weeks Patient Instructions/Handouts: Laparoscopic Hysterectomy (DC), Laparoscopic Hysterectomy (GEN) Activity/Diet/Wound Care/Special Instructions: Restrictions reviewed with the bedside. Patient is to make a postoperative appointment in 2 weeks. Pelvic rest until further discussed. Patient is counseled on vaginal bleeding postoperatively. She she may concerns prior to her postop appointment she is urged to call the office. Discharge Disposition: HOME SELF-CARE
--- NOTE | 2023-03-12 09:57 | P.PN ---
Progress Note - Text Progress Note Date: 03/12/23 (654) Anesthesia Postop day 1 Subjective: Status Post robotic vaginal hysterectomy with Duramorph. Patient seen and examined. Doing well without complaint. VAS 3/10. Nausea and vomiting yesterday. Mild pruritus tolerable. Afebrile. Gross lower extremity strength intact. Spinal site intact without induration. Without apparent anesthetic complications. Objective: Vital signs reviewed Heart: Regular Rate Lungs: Good chest excursion Abdomen: Appears nondistended Assessment: Status post robotic hysterectomy with Duramorph postop day 1 Plan: Continue current care with your medical management. Anticipated and the Duramorph section around time today. You may see increased pain needs around this time.
== END 2023-03-12 09:15 | disposition home or self-care (01) ==
LOC: OR 06:57 → 4FBP 10:51 → OR 03-12 09:15
PROVIDERS: ATTEND Obstetrics & Gynecology Obstetrics
DX: N85.7 Hematometra (principal); F12.90 Cannabis use, unspecified, uncomplicated; G89.18 Other acute postprocedural pain; Z98.51 Tubal ligation status; Z98.890 Other specified postprocedural states; Z79.899 Other long term (current) drug therapy
CPT/HCPCS: 81025; 86900; 86901; 85025; 86850; 88307; 58550; J2250; J1200; J1100; J0690; J2405; J3010; J0131; J1741; J1170; J1790; J0665